=== PATIENT | female | born 1985 | race Caucasian/White ===

== ENCOUNTER → 2021-09-28 | Outpatient (CLI) | payer BC ==
--- NOTE | 2021-09-28 11:12 | USB ---
Reason for exam: clinical finding. History: Patient had first child at age 31. Taking hormonal contraceptives beginning at age 15. Indicated problem(s): lump or thickening and pain in the left breast. Physical Findings: Nurse did not find any significant physical abnormalities on exam. US Breast LT Left complete breast ultrasound includes all four quadrants, the retroareolar region and axilla. Finding demonstrates a 0.9 x 0.8 x 0.9cm oval, cystic lesion at 2 o'clock BB, a 1.1 x 0.8 x 1.1cm oval, cystic lesion at 3 o'clock and a 0.8 x 0.5 x 0.7cm oval, cystic lesion at 3 o'clock. Simple cysts, overall fibrocystic changes. Very dense tissue throughout. These results were verbally communicated with the patient and result sheet given to the patient on 09/28/21. ASSESSMENT: Benign, BI-RAD 2 RECOMMENDATION: Routine screening mammogram of both breasts at age 38. Manage patient on a clinical basis.
== END | disposition home or self-care (01) ==
LOC: RADUSWWP 09:37
PROVIDERS: ATTEND Obstetrics & Gynecology
DX: N63.0 Unspecified lump in unspecified breast (principal)